=== PATIENT | male | born 1970 | race Caucasian/White ===

== ENCOUNTER 2017-02-14 10:27 | Emergency (ER) | payer BC ==
[2017-02-14 10:34] VITALS: BP 120/53; PULSE 82; TEMP 98.2; BMI 43.5
[2017-02-14] MEDS ORDERED: SULFAMETHOXAZOLE/TRIMETHOPRIM 800MG/160MG D.S. TABLET PO ONE (11:50)
[2017-02-14] MEDS ORDERED: CEPHALEXIN MONOHYDRATE 500 MG CAPSULE (UD) PO ONE (11:50)
--- NOTE | 2017-02-14 12:03 | PDOC ---
History of Present Illness - General History Source: Patient Exam Limitations: No Limitations <Tutu Ovalle - Last Filed: 02/14/17 12:05> - General History Source: Patient Exam Limitations: No Limitations - History of Present Illness Initial Comments: 02/14/17 12:05 The patient is a 46 year old male, with a significant past medical history of Diverticulosis who presents to the emergency department with rectal and inguinal abscess. The patient states he has been experiencing discomfort and pain his rectum for the past 4-5 days. Patient noticed clumps of dark and red blood when passing bowel. Patient has been taking Aleve but reports minimal relief. Subsequently, he developed a R inguinal sore 2 days later which has been bleeding the same way. The patient reports increased pain and discomfort in the area and reports to the ED for further evaluation. Patient denies any fevers, chills, nausea, vomit, diarrhea or constipation. He denies dysuria, frequency, urgency or hematuria. Patient denied any sick contacts or recent illnesses. Allergies: NKA Past surgical history: None Social history: Former smoker (quit 15 years ago) PCP: Dr. Jaycob Wagner <Gwen Rangel - Last Filed: 02/14/17 12:07> - General Chief Complaint: Bleeding from Anus Stated Complaint: RECTAL BLEED Time Seen by Provider: 02/14/17 11:02 Past History - Past Medical History Anemia: No Asthma: No Cancer: No Cardiac Disorders: Yes (palpitations) CVA: No COPD: No CHF: No Dementia: No Diabetes: No GI Disorders: Yes (divertculitis) Disorders: No HTN: No Hypercholesterolemia: No Liver Disease: No Seizures: No Thyroid Disease: No Other medical history: gout vs cellulitis - Surgical History Abdominal Surgery: No Appendectomy: No Cardiac Surgery: No Cholecystectomy: No Lung Surgery: No Neurologic Surgery: No Orthopedic Surgery: No - Psycho/Social/Smoking Cessation Hx Anxiety: No Suicidal Ideation: No Smoking History: Never smoked Have you smoked in the past 12 months: No If you are a former smoker, when did you quit?: 15 YRS Information on smoking cessation initiated: No Hx Alcohol Use: No Drug/Substance Use Hx: No Substance Use Type: None Hx Substance Use Treatment: No <Tutu Ovalle - Last Filed: 02/14/17 12:05> <Gwen Rangel - Last Filed: 02/14/17 12:07> - Past Medical History Allergies/Adverse Reactions: Allergies Allergy/AdvReac Type Severity Reaction Status Date / Time No Known Allergies Allergy Verified 02/14/17 10:30 Home Medications: Ambulatory Orders Colchicine [Colcrys -] 0.6 mg PO DAILY #30 tablet 11/23/15 Indomethacin 50 mg PO TID #60 capsule 11/23/15 Omeprazole [Prilosec] 20 mg PO AM #60 capsule. 11/23/15 Prednisone 5 mg PO DAILY 7 Days 11/23/15 Cephalexin [Keflex] 500 mg PO Q6H #28 capsule 02/14/17 Sulfamethoxazole/Trimethoprim [Bactrim Ds -] 1 tab PO BID #14 tablet 02/14/17 Review of Systems - Review of Systems Able to Perform ROS?: Yes Comments:: 02/14/17 12:06 GENERAL/CONSTITUTIONAL: No fever or chills. No weakness. HEAD, EYES, EARS, NOSE AND THROAT: No change in vision. No ear pain or discharge. No sore throat. CARDIOVASCULAR: No chest pain or shortness of breath. RESPIRATORY: No cough, wheezing, or hemoptysis. GASTROINTESTINAL: No nausea, vomiting, diarrhea or constipation. GENITOURINARY: No dysuria, frequency, or change in urination. MUSCULOSKELETAL: No joint or muscle swelling or pain. No neck or back pain. SKIN:+ Rectal abscess and R inguinal sore with pain. No rash NEUROLOGIC: No headache, vertigo, loss of consciousness, or change in strength/ sensation. ENDOCRINE: No increased thirst. No abnormal weight change. HEMATOLOGIC/LYMPHATIC: No anemia, easy bleeding, or history of blood clots. ALLERGIC/IMMUNOLOGIC: No hives or skin allergy. <Gwen Rangel - Last Filed: 02/14/17 12:07> *Physical Exam - Vital Signs Last Vital Signs Temp Pulse Resp BP Pulse Ox 98.2 F 82 18 120/53 100 02/14/17 10:31 02/14/17 10:31 02/14/17 10:31 02/14/17 10:31 02/14/17 10:31 <Tutu Ovalle - Last Filed: 02/14/17 12:05> - Vital Signs Last Vital Signs Temp Pulse Resp BP Pulse Ox 98.2 F 82 18 120/53 100 02/14/17 10:31 02/14/17 10:31 02/14/17 10:31 02/14/17 10:31 02/14/17 10:31 - Physical Exam Comments: 02/14/17 12:06 GENERAL: Awake, alert, and fully oriented, in no acute distress HEAD: No signs of trauma EYES: PERRLA, EOMI, sclera anicteric, conjunctiva clear ENT: Auricles normal inspection, hearing grossly normal, nares patent, oropharynx clear without exudates. Moist mucosa NECK: Normal ROM, supple, no lymphadenopathy, JVD, or masses LUNGS: Breath sounds equal, clear to auscultation bilaterally. No wheezes, and no crackles HEART: Regular rate and rhythm, normal S1 and S2, no murmurs, rubs or gallops ABDOMEN: Soft, nontender, normoactive bowel sounds. No guarding, no rebound. No masses EXTREMITIES: Normal range of motion, no edema. No clubbing or cyanosis. No cords, erythema, or tenderness NEUROLOGICAL: Cranial nerves II through XII grossly intact. Normal speech, normal gait SKIN:+ 1x1 cm boil on R inguinal crease with mild area of erythema. Warm, Dry, normal turgor, no rashes or lesions noted. RECTAL: + 3x3 cm area of induration with fluctuance. Mild oozing blood with surrounding erythema. <Gwen Rangel - Last Filed: 02/14/17 12:07> Procedures - Incision and Drainage I&D Site: Right: Buttock Anesthesia: 1% Lidocaine Volume(ml): 1 Blade Size: 11 Attempts: 1 Iodinated Packin/4 in Plain Packing: No <Tutu Ovalle - Last Filed: 02/14/17 12:05> Medical Decision Making - Medical Decision Making 02/14/17 12:00 A portion of this note was documented by scribe services under my direction. I have reviewed the details of the note, within reason, and agree with the documentation with the following case summary and management plan written by me. Patient treated in the ED. Nursing notes are reviewed and incorporated into the medical decision-making. Vital signs reviewed. Peripheral IV access obtained by the nurse, laboratory studies are drawn and sent, reviewed and interpreted by myself. Vital Signs Temp Pulse Resp BP Pulse Ox 98.2 F 82 18 120/53 100 02/14/17 10:31 02/14/17 10:31 02/14/17 10:31 02/14/17 10:31 02/14/17 10:31 46-year-old male with history of diverticulosis presents with abscess on the right medial buttocks and the right inguinal crease. The patient stated the last several days of this developing abscess that was draining. Was occasionally oozing blood which was either bright or dark. Patient denies fevers or chills. Absolutely denies blood per rectum. Upon evaluation, there is noted to abscess one along with some mild bloody oozing. Bedside ultrasound demonstrates pocket of abscess in the right medial buttocks. Right inguinal crease demonstrated no region of incision. No large pocket on ultrasound. Discussed with patient in regards to incision and drainage. Risks and benefits were discussed the patient consented for incision. Approximately 2 mL of 1% lidocaine without epinephrine was infused locally with excellent anesthesia. With an 11 blade, a quarter centimeter incision was made and approximately 1 mL of serosanguineous fluid was expressed. A quarter inch iodine form packing placed and covered with gauze. Patient initiate on Bactrim and Keflex for overlying cellulitis. Patient instructed to return to the ER in 2 days for wound care and wound check. I discussed the physical exam findings, ancillary test results and final diagnoses with the patient. I answered all of the patient's questions. The patient was satisfied with the care received and felt comfortable with the discharge plan and treatment plan. The patient will call their primary care physician within 24 hours to arrange follow-up and will return to the Emergency Department with any new, persistant or worsening symptoms. <Tutu Ovalle - Last Filed: 02/14/17 12:05> *DC/Admit/Observation/Transfer - Discharge Dispostion Admit: No <Tutu Ovalle - Last Filed: 02/14/17 12:05> - Attestations Scribe Attestion: 02/14/17 12:07 Documentation prepared by Gwen Rangel, acting as medical assistant secretary for Tutu Ovalle MD <Gwen Rangel - Last Filed: 02/14/17 12:07> Diagnosis at time of Disposition: Abscess - Discharge Dispostion Disposition: HOME Condition at time of disposition: Improved - Prescriptions Prescriptions: Sulfamethoxazole/Trimethoprim [Bactrim Ds -] 1 tab PO BID #14 tablet Cephalexin [Keflex] 500 mg PO Q6H #28 capsule - Referrals Referrals: Jaycob Wagner MD [Primary Care Provider] - - Patient Instructions Printed Discharge Instructions: DI for Cellulitis -- Adult, DI for Incision and Drainage of a Skin Abscess Additional Instructions: Please take bactrim and keflex (antibiotics) as prescribed for the next week. Return to the ER in 2 days for wound check. Please leave the packing in.
[2017-02-14] MEDS ORDERED: SULFAMETHOXAZOLE/TRIMETHOPRIM 800MG/160MG D.S. TABLET ONE (12:06)
[2017-02-14] MEDS ORDERED: CEPHALEXIN MONOHYDRATE 250 MG CAPSULE (FP) ONE (12:07)
--- NOTE | 2017-02-15 15:25 | PDOC ---
Patient Follow-up (Call Back) - Post ED Follow - Up Condition at time of discharge: Improved Disposition at time of original discharge: HOME Reason for Call Back: Abnwl. Microbiology (Patient with presumptive MRSA, on Bactrim appropriate treatment.)
== END 2017-02-14 12:15 | disposition home or self-care (01) ==
LOC: JER 10:27
PROC: 0H98XZZ Drainage of Buttock Skin, External Approach (ICD-10-PCS; principal; 2017-02-14)
DX: L02.31 Cutaneous abscess of buttock (principal); L02.214 Cutaneous abscess of groin
CPT/HCPCS: 87070; 87186; 87205; 99281-25

== ENCOUNTER 2017-02-16 09:32 | Emergency (ER) | payer BC ==
[2017-02-16 09:35] VITALS: BP 134/77; PULSE 89; TEMP 98.7; BMI 43.5
--- NOTE | 2017-02-16 10:10 | PDOC ---
Suture Removal/Wound Check HPI - History of Present Illness Chief Complaint: Revisit,Wound Recheck Stated Complaint: REVISIT/ WOUND CHECK Time Seen by Provider: 02/16/17 09:40 History Source: Yes: Patient Exam Limitations: Yes: No Limitations Treated at: [facility] Date of Last ED visit: 02/14/17 - Previous ED Treatment Type of procedure performed on last visit: Yes: I&D of Abscess Tetanus Immunization: Yes: Up to Date Antibiotics Prescribed: Yes (Keflex and bactrim) Past History - Past Medical History Allergies/Adverse Reactions: Allergies No Known Allergies Allergy (Verified 02/16/17 09:35) Home Medications: Ambulatory Orders Cephalexin [Keflex] 500 mg PO Q6H #28 capsule 02/14/17 Sulfamethoxazole/Trimethoprim [Bactrim Ds -] 1 tab PO BID #14 tablet 02/14/17 General: Yes: no pertinent history Surgical History: Yes: No Surgical History - Immunization History Tetanus Status: Unknown - Social History Smoking Status: Never smoked Suture Removal/Wound Check PE - Physical Exam Laceration/Wound Check Symptoms: reports: Discharge. denies: Fever, Bleeding Current Severity Level: None Maximum Severity Level: None Pain Localization: None *Review of Systems - Review of Systems Constitutional: No: Symptoms Reported Respiratory: No: Symptoms reported Cardiac (ROS): No: Symptoms Reported Musculoskeletal: No: Symptoms Reported Integumentary: Yes: Other (decreased redness around area of incision, wound is healing well, no packing was noted. Area cleansed with normal saline and redressed, patient to continue Bactrim DC Keflex. Patient presumptive MRSA positive) Medical Decision Making - Medical Decision Making 02/16/17 10:12 Jordy: Patient here for wound check to abscess drained on 02/14/2017. Patient to continue Bactrim DC Keflex, follow-up with surgery. Keep area clean and dry, change dressing twice a day., Increased redness, area is not healing to return immediately to ER *DC/Admit/Observation/Transfer Diagnosis at time of Disposition: Wound check, abscess - Discharge Dispostion Disposition: HOME Condition at time of disposition: Good Admit: No - Referrals Referrals: Jaycob Wagner MD [Primary Care Provider] - - Patient Instructions Printed Discharge Instructions: How to Care for a Surgical Wound, DI for Wound Infection Additional Instructions: Continue Bactrim discontinue Keflex. Please make sure to change dressing daily. Please keep area clean no frequent soaps lotions or detergents Commend follow-up with PMD or surgery in 1 week for evaluation. If any increased redness swelling or signs of infection please return immediately to ER
== END 2017-02-16 10:18 | disposition home or self-care (01) ==
LOC: JERFT 09:32
DX: Z09 Encounter for follow-up examination after completed treatment for conditions other than malignant neoplasm (principal)
CPT/HCPCS: 99281-25

== ENCOUNTER 2020-12-04 08:23 | Day surgery (SDC) | payer OTHER ==
[2020-12-03 14:42] VITALS: BMI 51.2
[2020-12-04 10:21] VITALS: PULSE 84; TEMP 97.8
[2020-12-04 10:25] VITALS: BP 122/65
== END 2020-12-04 10:28 | disposition home or self-care (01) ==
LOC: FASU-ENDO 08:23
PROVIDERS: ATTEND Internal Medicine Gastroenterology
PROC: 0DB78ZX Excision of Stomach, Pylorus, Via Natural or Artificial Opening Endoscopic, Diagnostic (ICD-10-PCS; 2020-12-04)
PROC: 0DJD8ZZ Inspection of Lower Intestinal Tract, Via Natural or Artificial Opening Endoscopic (ICD-10-PCS; 2020-12-04)
PROC: 0DB98ZX Excision of Duodenum, Via Natural or Artificial Opening Endoscopic, Diagnostic (ICD-10-PCS; principal; 2020-12-04 09:26)
DX: Z12.11 Encounter for screening for malignant neoplasm of colon (principal); K29.50 Unspecified chronic gastritis without bleeding; K57.30 Diverticulosis of large intestine without perforation or abscess without bleeding; Z86.010 Personal history of colon polyps; R12 Heartburn
CPT/HCPCS: 43239; G0105; 88305-TC; 88342-TC

== ENCOUNTER 2021-09-11 06:55 | Day surgery (SDC) | payer OTHER ==
[2021-09-07 12:30] VITALS: BMI 54.9
[~2021-09-11 06:55] MED LIST: BUPIVACAINE HCL/PF 0.25% (2.5MG/ML) 10 ML VIAL IJ ONE
[2021-09-11] MEDS ORDERED: BUPIVACAINE HCL/PF 2.5 MG/ML - 30 ML VIAL IJ ONE (07:11)
[2021-09-11] MEDS ORDERED: EPINEPHrine 1:1,000 1,000 MCG/ML ML ONE (07:24)
[2021-09-11] MEDS ORDERED: MIDAZOLAM HCL 2 MG/2 ML SINGLE DOSE VIAL ONE ×2 (08:44)
[2021-09-11] MEDS ORDERED: BUPIVACAINE HCL/PF 0.25% (2.5MG/ML) 10 ML VIAL IJ ONE (09:40)
[2021-09-11] MEDS ORDERED: ONDANSETRON 4 MG/2 ML VIAL IVPUSH PRN (09:50)
[2021-09-11] MEDS ORDERED: oxyCODONE HCL 5 MG TABLET PO PRN ×2 (09:50)
[2021-09-11] MEDS ORDERED: PROMETHAZINE HCL 25 MG/1 ML VIAL IVPUSH PRN (09:50)
[2021-09-11 11:24] VITALS: TEMP 98
[2021-09-11 13:47] VITALS: BP 118/78; PULSE 66
== END 2021-09-11 13:30 | disposition home or self-care (01) ==
LOC: FASU 06:55
PROVIDERS: ATTEND Orthopaedic Surgery
PROC: 0SBC4ZZ Excision of Right Knee Joint, Percutaneous Endoscopic Approach (ICD-10-PCS; 2021-09-11)
PROC: 0SBC4ZZ Excision of Right Knee Joint, Percutaneous Endoscopic Approach (ICD-10-PCS; 2021-09-11)
PROC: 0SBC4ZZ Excision of Right Knee Joint, Percutaneous Endoscopic Approach (ICD-10-PCS; principal; 2021-09-11 09:20)
DX: S83.281A Other tear of lateral meniscus, current injury, right knee, initial encounter (principal); S83.241A Other tear of medial meniscus, current injury, right knee, initial encounter; S83.8X1A Sprain of other specified parts of right knee, initial encounter; M65.861 Other synovitis and tenosynovitis, right lower leg; X58.XXXA Exposure to other specified factors, initial encounter; Y93.9 Activity, unspecified; Y92.9 Unspecified place or not applicable
CPT/HCPCS: 88304-TC; 94760

== ENCOUNTER 2023-06-20 11:28 | Emergency (ER) | payer OTHER ==
[2023-06-20 11:36] VITALS: BP 120/67; PULSE 82; RESP 20; TEMP 98.7; BMI 54.2
[2023-06-20 13:59] LABS: EOS % 2.1 % (0-4.5); HEMATOCRIT 43.2 % (35.4-49); LYMPH % 21.3 % (8-40); MCH 29.7 pg (25.7-33.7); MCHC 32.3 g/dl (32.0-35.9); MEAN PLT VOLUME 7.4 fl (7.5-11.1); MONO % 7.9 % (3.8-10.2); NEUT % 67.7 % (42.8-82.8); PLATELET COUNT 299 10^3/uL (134-434); RBC 4.69 M/mm3 (4.00-5.60); RDW 13.6 % (11.9-15.9); WHITE BLOOD COUNT 10.9 K/mm3 (4.0-10.0)
[2023-06-20 14:44] LABS: ALBUMIN 3.1 g/dl (3.4-5.0); BILIRUBIN,TOTAL 0.3 mg/dL (0.2-1); BLOOD UREA NITROGEN 18.6 mg/dL (7-18); CALCIUM 8.6 mg/dL (8.5-10.1); CREATININE 0.6 mg/dL (0.55-1.3); MAGNESIUM 2.2 mg/dL (1.8-2.4); POTASSIUM 4.6 mmol/L (3.5-5.1); TOT PROT 6.9 g/dl (6.4-8.2)
== END 2023-06-20 15:30 | disposition home or self-care (01) ==
LOC: JER 11:28
DX: R06.02 Shortness of breath (principal); R00.2 Palpitations; Z20.822 Contact with and (suspected) exposure to COVID-19
CPT/HCPCS: 0241U-QW; 36415; 71046-TC-FY; 80053; 83735; 84484; 85025; 93005; 93010; 99285-25